=== PATIENT | male | born 1965 | race Asian ===

== ENCOUNTER 2022-01-20 03:24 | Observation (INO) | payer OTHER | END 2022-01-20 08:57 | disposition still patient (30) | LOC: OBSER 03:24 | PROVIDERS: ADMIT Internal Medicine Cardiovascular Disease; ATTEND Internal Medicine Cardiovascular Disease | DX: Z00.00 Encounter for general adult medical examination without abnormal findings (principal) | CPT/HCPCS: G0378 ×7 ==